=== PATIENT | male | born 1990 | race Caucasian/White ===

== ENCOUNTER 2018-04-26 07:39 | Emergency (ER) | payer OTHER ==
[~2018-04-26] VITALS: Ht 188 cm; Wt 95.4 kg
[~2018-04-26 07:39] MED LIST: LORA-446 PO; VALP250C PO
[2018-04-26 07:44] VITALS: BP 114/73
[2018-04-26] MEDS ORDERED: LIDOCAINE-MPF 1%, 5ML ONE (07:51)
[2018-04-26] MEDS ORDERED: LIDOCAINE 1%, 10ML INFIL ONE (08:00)
--- NOTE | 2018-04-26 08:10 | NUR ---
C/O LACERATION TO RIGHT HAND AT 2ND METACARPALPHALANGEAL JOINT. MO ACTIVE BLEEDING. ABOUT 1.5 CM. PT STATES HE HAD A RECENT TETANUS INJECTION.
--- NOTE | 2018-04-26 08:20 | NUR ---
IRRIGATED WOUND WITH STERILE NS. PT TOLERATED THIS WELL. "I DON'T FEEL A THING". READY FOR SUTURES. PA ADVISED.
--- NOTE | 2018-04-26 09:02 | NUR ---
WOUND COVERED WITH STERILE BANDAGE, FINGER SPLINT PLACED. PT VRBALIZED UNDERSTANDING OF SPLINT AND WOUND CARE. PT STATES HE WILL RETURN TO A CARE PROVIDER IN 10 DAYS TO HAVE SUTURES REMOVED.
== END 2018-04-26 09:04 | disposition home or self-care (01) ==
LOC: ED 08:15
DX: S61.411A Laceration without foreign body of right hand, initial encounter (principal); X58.XXXA Exposure to other specified factors, initial encounter; Y93.89 Activity, other specified; Y92.009 Unspecified place in unspecified non-institutional (private) residence as the place of occurrence of the external cause; Y99.8 Other external cause status
CPT/HCPCS: 12041; 99284

== ENCOUNTER 2018-06-27 16:23 | Observation (INO) | payer MEDICAID, OTHER ==
[~2018-06-27] VITALS: Ht 188 cm; Wt 92.7 kg
--- NOTE | 2018-06-27 16:34 | NUR ---
Pt ambulates to restroom with steady gait and balance.
--- NOTE | 2018-06-27 16:52 | NUR ---
Pt restign on gurney in [facility] ED MD at bedside. 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 Pt states he hasn't been on his meds for at least a month and is unable to identify what medications he is suppose to be on. Pt AOX4, cooperartive, and anxious. Pt belongings placed in personal belonging bags at RN station. Pt provided urine and urine sent to lab. Sitter near doorway in direct line of sight for observation. KYLEIGH. Pt resting on gurney watching TV. No needs expressed.
[2018-06-27 17:12] LABS: BASOPHILS # (AUTO) 0.05 x10^3/uL (0-0.1); BASOPHILS % (AUTO) 1 % (0-1); EOSINOPHILS # (AUTO) 0.08 x10^3/uL (0-0.4); EOSINOPHILS % (AUTO) 1 % (1-7); LYMPHOCYTES # (AUTO) 1.86 x10^3/uL (1-3.4); LYMPHOCYTES % (AUTO) 20 % (22-44); MD NO; MEAN CORPUSCULAR HEMOGLOBIN 29.7 pg (27.5-34.5); MEAN CORPUSCULAR HGB CONC 33.7 g/dL (33.2-36.2); MEAN CORPUSCULAR VOLUME 88.2 fL (81-97); MEAN PLATELET VOLUME 8.8 fL (7.4-10.4); MONOCYTES # (AUTO) 0.83 x10^3/uL (0.2-0.8); MONOCYTES % (AUTO) 9 % (2-9); NEUTROPHILS # (AUTO) 6.63 x10^3/uL (1.8-6.8); NEUTROPHILS % (AUTO) 70 % (42-75); PLATELET COUNT 358 x10^3/uL (130-400); RED BLOOD COUNT 5.43 x10^6/uL (4.38-5.82); RED CELL DISTRIBUTION WIDTH 13.5 % (9.4-14.8)
[2018-06-27 17:18] LABS: ALBUMIN 4.2 g/dL (3.4-5.0); ANION GAP 5 mmol/L (5-15); CHLORIDE 108 mmol/L (98-107); SALICYLATE LEVEL 1.7 mg/dL (2.8-20.0)
[2018-06-27 17:23] LABS: AMPHETAMINE SCREEN, URINE Negative (Negative); BARBITURATE SCREEN, URINE Negative (Negative); BENZODIAZEPINE SCREEN, URINE Negative (Negative); CANNABINOID SCREEN, URINE Positive (Negative); COCAINE SCREEN, URINE Negative (Negative); METHADONE SCREEN, URINE Negative (Negative); OPIATE SCREEN, URINE Negative (Negative)
[2018-06-27 17:24] LABS: ALANINE AMINOTRANSFERASE 32 U/L (12-78); ALKALINE PHOSPHATASE 85 U/L (45-117); BILIRUBIN,TOTAL 0.5 mg/dL (0.2-1.0); TOTAL PROTEIN 8.3 g/dL (6.4-8.2)
[2018-06-27 17:26] LABS: ACETAMINOPHEN < 2 mcg/mL (10-30)
--- NOTE | 2018-06-27 17:28 | NUR ---
THROUGHPUT RN: Telepsych consult initiated at this time
--- NOTE | 2018-06-27 18:06 | NUR ---
Telepsych bot set up at bedside.
--- NOTE | 2018-06-27 18:10 | NUR ---
Provided report to SOC doctor. SOC doctor calling pt on telepsych bot now.
--- NOTE | 2018-06-27 18:47 | NUR ---
Removing pt's cell phone, chewing tobacco, and personal mini spiral notebook and placing it with pt belongings in ED locker. Pt has two personal belonging bags with tags in ED lover for safe keeping.
--- NOTE | 2018-06-27 18:48 | NUR ---
Ordered pt dinner tray. Pt appreciative.
--- NOTE | 2018-06-27 19:03 | NUR ---
Provided bedside report to JONI Sepulveda. All questiosn answered.
--- NOTE | 2018-06-27 19:03 | NUR ---
ASSUMED CARE OF PATIENT. BEDSIDE REPORT GIVEN FROM JONI LEMUS
--- NOTE | 2018-06-27 19:16 | NUR ---
THROUGHPUT: PACKET FAXED TO [facility]
[2018-06-27] MEDS ORDERED: ACETAMINOPHEN 325 MG TABLET PO PRN (19:30)
[2018-06-27] MEDS ORDERED: LORazepam 1MG TABLET PO PRN (19:30)
--- NOTE | 2018-06-27 19:40 | NUR ---
pt given a sandwich and chips report called into [facility] pt calm and ready for transport
[2018-06-27 20:01] VITALS: BP 136/80
[2018-06-28 07:20] VITALS: BP 119/72
[2018-06-28 19:23] VITALS: BP 120/75
[2018-06-28] MEDS: QUETIAPINE 25MG TABLET PO SCH (20:42)
[2018-06-28] MEDS: PAROXETINE 10 MG TABLET PO SCH (21:00)
[2018-06-29 07:25] VITALS: BP 103/65
[2018-06-29] MEDS: PAROXETINE 10 MG TABLET PO SCH (09:03)
[2018-06-29 20:00] VITALS: BP 124/84
[2018-06-29] MEDS: QUETIAPINE 25MG TABLET PO SCH (20:38)
[2018-06-30 08:00] VITALS: BP 112/80
[2018-06-30] MEDS: PAROXETINE 10 MG TABLET PO SCH (09:00)
[2018-06-30 19:21] VITALS: BP 144/74
[2018-06-30] MEDS: QUETIAPINE 25MG TABLET PO SCH (20:38)
[2018-07-01] MEDS ORDERED: PARO10TA3 PO (07:29)
[2018-07-01] MEDS: PAROXETINE 10 MG TABLET PO SCH (07:58)
[2018-07-01 08:30] VITALS: BP 127/90
== END 2018-07-01 12:00 | disposition home or self-care (01) ==
LOC: ED 17:13 → EDIP 18:46 → 2N 19:57
PROVIDERS: ADMIT Family Medicine; ATTEND Family Medicine
DX: R45.851 Suicidal ideations (principal); F33.2 Major depressive disorder, recurrent severe without psychotic features; F12.20 Cannabis dependence, uncomplicated; F14.90 Cocaine use, unspecified, uncomplicated; F41.9 Anxiety disorder, unspecified; Z91.19 Patient's noncompliance with other medical treatment and regimen
CPT/HCPCS: 36415; 80053; 80307; 80329; 85025; 99284; G0378; G0480

== ENCOUNTER 2018-08-12 09:14 | Emergency (ER) | payer MEDICAID, OTHER ==
[~2018-08-12] VITALS: Ht 188 cm; Wt 93.0 kg
[~2018-08-12 09:14] MED LIST changes: +PARO10TA3 PO
--- NOTE | 2018-08-12 09:48 | NUR ---
PT. IS A & O X 4 WITH C/O INTERMITTENT CHEST PAIN FOR A WEEK. 12 LEAD EKG WAS DONE. PT. HAS THE CP MONITOR IN PLACE. PT.'S LUNGS ARE CTA. MM ARE PINK AND MOIST WITH PULSES +2 THROUGHOUT. PT.'S ABD. IS SOFT AND FLAT WITH BS + X 4 QUADS. PT. IS WAS TAKEN TO XRAY.
[2018-08-12 10:02] LABS: BASOPHILS # (AUTO) 0.04 x10^3/uL (0-0.1); BASOPHILS % (AUTO) 1 % (0-1); EOSINOPHILS # (AUTO) 0.18 x10^3/uL (0-0.4); EOSINOPHILS % (AUTO) 2 % (1-7); LYMPHOCYTES # (AUTO) 1.56 x10^3/uL (1-3.4); LYMPHOCYTES % (AUTO) 20 % (22-44); MD NO; MEAN CORPUSCULAR HEMOGLOBIN 29.8 pg (27.5-34.5); MEAN CORPUSCULAR HGB CONC 33.9 g/dL (33.2-36.2); MEAN CORPUSCULAR VOLUME 87.7 fL (81-97); MEAN PLATELET VOLUME 8.4 fL (7.4-10.4); MONOCYTES # (AUTO) 0.69 x10^3/uL (0.2-0.8); MONOCYTES % (AUTO) 9 % (2-9); NEUTROPHILS # (AUTO) 5.39 x10^3/uL (1.8-6.8); NEUTROPHILS % (AUTO) 69 % (42-75); PLATELET COUNT 330 x10^3/uL (130-400); RED BLOOD COUNT 5.13 x10^6/uL (4.38-5.82); RED CELL DISTRIBUTION WIDTH 13.4 % (9.4-14.8)
[2018-08-12 10:12] LABS: ALBUMIN 3.9 g/dL (3.4-5.0); ANION GAP 7 mmol/L (5-15); CHLORIDE 106 mmol/L (98-107); CREATININE 0.93 mg/dL (0.7-1.3)
[2018-08-12 10:16] LABS: TROPONIN I < 0.015 ng/mL (0.000-0.045)
--- NOTE | 2018-08-12 11:07 | NUR ---
PT. WAS GIVEN DISCHARGE INSTRUCTIONS WITH UNDERSTANDING VERBALIZED ALONG WITH WILLINGNESS TO COMPLY. PT. WAS AMBULATORY TO THE DISCHARGE DESK. VSS.
[2018-08-12 11:08] VITALS: BP 115/77
== END 2018-08-12 11:10 | disposition home or self-care (01) ==
LOC: ED 10:22
DX: R07.89 Other chest pain (principal); F32.9 Major depressive disorder, single episode, unspecified
CPT/HCPCS: 36415; 71046; 80048; 82040; 84484; 85025; 93005; 99284

== ENCOUNTER 2018-09-13 15:10 | Inpatient (IN) | payer MEDICAID ==
[~2018-09-13] VITALS: Ht 188 cm; Wt 88.2 kg
--- NOTE | 2018-09-13 15:43 | NUR ---
PT BIB [facility] FOR SEROQUEL OVERDOSE. PT STATES HE TOOK 30 ( O.25 MG TABLETS). PT VERY DROWSY. PT PLACED IN ROOM. PT A&OX4. PT PLACED ON BP, CARDIAC AND CONT. PULSE OXIMETER. ASSESSMENT COMPLETED. 2 SIDE RAILS UP. SITTER AT BEDSIDE. BELONGINGS LOCKED IN CABINET. PT COOPERATIVE AT THIS TIME.
--- NOTE | 2018-09-13 15:45 | NUR ---
EKG DONE AND PRESENTED TO
[2018-09-13 15:46] LABS: BASOPHILS # (AUTO) 0.04 x10^3/uL (0-0.1); BASOPHILS % (AUTO) 0 % (0-1); EOSINOPHILS # (AUTO) 0.04 x10^3/uL (0-0.4); EOSINOPHILS % (AUTO) 1 % (1-7); LYMPHOCYTES # (AUTO) 1.27 x10^3/uL (1-3.4); LYMPHOCYTES % (AUTO) 15 % (22-44); MD NO; MEAN CORPUSCULAR VOLUME 90.8 fL (81-97); MEAN PLATELET VOLUME 8.2 fL (7.4-10.4); MONOCYTES # (AUTO) 0.65 x10^3/uL (0.2-0.8); MONOCYTES % (AUTO) 8 % (2-9); NEUTROPHILS % (AUTO) 77 % (42-75); PLATELET COUNT 322 x10^3/uL (130-400); RED BLOOD COUNT 4.96 x10^6/uL (4.38-5.82); RED CELL DISTRIBUTION WIDTH 13.7 % (9.4-14.8)
[2018-09-13 15:55] LABS: ALBUMIN 3.7 g/dL (3.4-5.0); ANION GAP 7 mmol/L (5-15); CALCIUM 8.4 mg/dL (8.5-10.1); CHLORIDE 109 mmol/L (98-107)
[2018-09-13 15:59] LABS: ALANINE AMINOTRANSFERASE 25 U/L (12-78); ALKALINE PHOSPHATASE 66 U/L (45-117); BILIRUBIN,TOTAL 0.3 mg/dL (0.2-1.0)
[2018-09-13 16:00] LABS: ACETAMINOPHEN < 2 mcg/mL (10-30); SALICYLATE LEVEL < 1.7 mg/dL (2.8-20.0)
--- NOTE | 2018-09-13 16:09 | NUR ---
PT AWAKENS WITH VERBAL STIMULI. PT DROWSY.
--- NOTE | 2018-09-13 16:28 | NUR ---
PT SLEEPING IN BED. VITALS STABLE AT THIS TIME.
--- NOTE | 2018-09-13 17:05 | NUR ---
pt sleeping at this time. awakens with verbal stimuli. pt a&ox4
[2018-09-13] MEDS ORDERED: ONDANSETRON ODT 4 MG PO PRN (18:00)
[2018-09-13] MEDS ORDERED: LABETALOL 5 MG/ML SYRINGE IVPush PRN (18:00)
[2018-09-13] MEDS ORDERED: ACETAMINOPHEN 325 MG TABLET PO PRN (18:00)
--- NOTE | 2018-09-13 18:17 | NUR ---
PATIENT FATHER [phone] JOHANNA MARX
--- NOTE | 2018-09-13 18:26 | NUR ---
CALLED REPORT TO [facility].
[2018-09-13 18:34] LABS: AMPHETAMINE SCREEN, URINE Negative (Negative); BARBITURATE SCREEN, URINE Negative (Negative); BENZODIAZEPINE SCREEN, URINE Negative (Negative); CANNABINOID SCREEN, URINE Positive (Negative); COCAINE SCREEN, URINE Negative (Negative); METHADONE SCREEN, URINE Negative (Negative); OPIATE SCREEN, URINE Negative (Negative)
[2018-09-13] MEDS: SODIUM CHLORIDE 0.9% 1,000 ML IV SCH (21:00)
[2018-09-13 21:01] VITALS: BP 108/62
[2018-09-14 01:19] VITALS: BP 101/56
[2018-09-14 04:53] LABS: BASOPHILS # (AUTO) 0.04 x10^3/uL (0-0.1); BASOPHILS % (AUTO) 0 % (0-1); EOSINOPHILS # (AUTO) 0.22 x10^3/uL (0-0.4); EOSINOPHILS % (AUTO) 3 % (1-7); LYMPHOCYTES # (AUTO) 1.95 x10^3/uL (1-3.4); LYMPHOCYTES % (AUTO) 22 % (22-44); MD NO; MEAN CORPUSCULAR HEMOGLOBIN 30.3 pg (27.5-34.5); MEAN CORPUSCULAR HGB CONC 33.4 g/dL (33.2-36.2); MEAN CORPUSCULAR VOLUME 90.6 fL (81-97); MEAN PLATELET VOLUME 8.5 fL (7.4-10.4); MONOCYTES % (AUTO) 10 % (2-9); NEUTROPHILS # (AUTO) 5.82 x10^3/uL (1.8-6.8); NEUTROPHILS % (AUTO) 65 % (42-75); PLATELET COUNT 323 x10^3/uL (130-400); RED BLOOD COUNT 5.02 x10^6/uL (4.38-5.82); RED CELL DISTRIBUTION WIDTH 13.8 % (9.4-14.8)
[2018-09-14 05:02] LABS: ALBUMIN 3.5 g/dL (3.4-5.0); ANION GAP 5 mmol/L (5-15); CALCIUM 8.8 mg/dL (8.5-10.1); CHLORIDE 112 mmol/L (98-107)
[2018-09-14 05:15] LABS: ALANINE AMINOTRANSFERASE 25 U/L (12-78); ALKALINE PHOSPHATASE 69 U/L (45-117); BILIRUBIN,TOTAL 0.5 mg/dL (0.2-1.0); CREATININE 1.09 mg/dL (0.7-1.3); THYROID STIMULATING HORMONE 0.602 mIU/L (0.358-3.740); TOTAL PROTEIN 6.9 g/dL (6.4-8.2)
[2018-09-14 06:45] VITALS: BP 105/66
[2018-09-14] MEDS: SODIUM CHLORIDE 0.9% 1,000 ML IV SCH ×2 (09:34→19:35)
[2018-09-14 12:30] VITALS: BP 119/75
[2018-09-14] MEDS ORDERED: QUET50TA5 PO (15:36)
[2018-09-14] MEDS ORDERED: PARO10TA3 PO (15:36)
[2018-09-14] MEDS ORDERED: OXCA150T18 PO (15:36)
[2018-09-14 20:06] VITALS: BP 124/78
[2018-09-15 01:10] VITALS: BP 117/72
[2018-09-15 06:13] VITALS: BP 118/76
[2018-09-15] MEDS: SODIUM CHLORIDE 0.9% 1,000 ML IV SCH ×2 (06:15→16:47)
[2018-09-15 12:05] LABS: TROPONIN I < 0.015 ng/mL (0.000-0.045)
[2018-09-15 14:26] VITALS: BP 120/72
[2018-09-15 16:40] VITALS: BP 145/87
[2018-09-15 18:01] LABS: TROPONIN I < 0.015 ng/mL (0.000-0.045)
[2018-09-15 21:27] VITALS: BP 124/79
[2018-09-16 02:10] VITALS: BP 104/73
[2018-09-16] MEDS: SODIUM CHLORIDE 0.9% 1,000 ML IV SCH ×2 (07:20→17:26)
[2018-09-16 07:38] VITALS: BP 124/76
[2018-09-16 13:53] VITALS: BP 153/81
[2018-09-16 18:15] VITALS: BP 160/84
[2018-09-16 19:20] VITALS: BP 140/90
== END 2018-09-16 21:02 | DRG 918 ==
LOC: ED 15:35 → EDIP 17:34 → 4WST 19:11 → 2N 09-16 16:59
PROVIDERS: ADMIT Internal Medicine; ATTEND Internal Medicine
DX: T43.592A Poisoning by other antipsychotics and neuroleptics, intentional self-harm, initial encounter (principal); F33.9 Major depressive disorder, recurrent, unspecified; Z72.0 Tobacco use; Z88.6 Allergy status to analgesic agent
CPT/HCPCS: 36415; 80053; 80307; 84443; 84484; 85025; 93005; 93306; 99285; G0378; J7030

== ENCOUNTER 2019-10-09 05:52 | Emergency (ER) | payer MEDICAID ==
[~2019-10-09] VITALS: Ht 188 cm; Wt 81.0 kg
[~2019-10-09 05:52] MED LIST changes: +OXCA150T18 PO; +QUET50TA5 PO
[2019-10-09 05:59] VITALS: BP 128/75
--- NOTE | 2019-10-09 06:08 | NUR ---
Pt ambulated to room 18 c/o lesion to the left side of mouth. Pt states that it started as a pimple but "keeps picking at it with meth on fingers."
== END 2019-10-09 06:43 | disposition home or self-care (01) ==
LOC: ED 06:09
DX: L01.01 Non-bullous impetigo (principal)
CPT/HCPCS: 99283

== ENCOUNTER 2019-10-14 19:26 | Emergency (ER) | payer MEDICAID ==
[~2019-10-14] VITALS: Ht 188 cm; Wt 82.7 kg
[2019-10-14 19:30] VITALS: BP 111/71
--- NOTE | 2019-10-14 19:44 | NUR ---
Pt seated in chair at nurses station for pt safety as no [facility] rooms available, Dr Strickland talking with pt at this time.
--- NOTE | 2019-10-14 20:05 | NUR ---
PT IN VIEW OF NURSING STATION, LAB DRAW IN PROGRESS, NO COMPLAINTS AT THIS TIME
[2019-10-14 20:17] LABS: BASOPHILS # (AUTO) 0.03 x10^3/uL (0-0.1); BASOPHILS % (AUTO) 0 % (0-1); EOSINOPHILS # (AUTO) 0.06 x10^3/uL (0-0.4); EOSINOPHILS % (AUTO) 1 % (1-7); LYMPHOCYTES # (AUTO) 1.86 x10^3/uL (1-3.4); LYMPHOCYTES % (AUTO) 17 % (22-44); MD NO; MEAN CORPUSCULAR HEMOGLOBIN 29.3 pg (27.5-34.5); MEAN CORPUSCULAR HGB CONC 33.2 g/dL (33.2-36.2); MEAN CORPUSCULAR VOLUME 88.3 fL (81-97); MEAN PLATELET VOLUME 8.4 fL (7.4-10.4); MONOCYTES # (AUTO) 0.61 x10^3/uL (0.2-0.8); MONOCYTES % (AUTO) 6 % (2-9); NEUTROPHILS % (AUTO) 77 % (42-75); PLATELET COUNT 387 x10^3/uL (130-400); RED BLOOD COUNT 5.15 x10^6/uL (4.38-5.82); RED CELL DISTRIBUTION WIDTH 14.2 % (9.4-14.8)
[2019-10-14 20:26] LABS: ANION GAP 7 mmol/L (5-15); CALCIUM 9.1 mg/dL (8.5-10.1); CHLORIDE 107 mmol/L (98-107); CREATININE 1.22 mg/dL (0.7-1.3)
[2019-10-14 20:32] LABS: SALICYLATE LEVEL < 1.7 mg/dL (2.8-20.0)
--- NOTE | 2019-10-14 20:52 | NUR ---
PT STATES TO THIS RN THAT HE IS NOT ACTUALLY SUICIDAL AND WAS TOLD BY HIS FRIENDS TO SAY HE WAS SI SO THAT HE WOULD HAVE A PLACE TO STAY. PT STATED THIS TO THE ERP WELL, GIVEN A SANDWICH AND BUS PASS. STATES HE IS COMFORTABLE WITH DISCHARGE AND HAS A FRIEND'S HOUSE HE CAN GO TO.
== END 2019-10-14 22:02 | disposition home or self-care (01) ==
LOC: ED 21:26
DX: R45.851 Suicidal ideations (principal); F32.9 Major depressive disorder, single episode, unspecified; Z87.891 Personal history of nicotine dependence; Z91.14 Patient's other noncompliance with medication regimen
CPT/HCPCS: 36415; 80048; 80307; 82040; 85025; 99283

== ENCOUNTER 2019-10-20 05:42 | Emergency (ER) | payer MEDICAID ==
[~2019-10-20] VITALS: Ht 188 cm; Wt 84.7 kg
[2019-10-20 05:45] VITALS: BP 114/71
[2019-10-20] MEDS ORDERED: CEFTRIAXONE 250 MG IM ONE (06:00)
[2019-10-20] MEDS ORDERED: AZITHROMYCIN 500 MG TABLET PO ONE (06:00)
[2019-10-20] MEDS ORDERED: AZITHROMYCIN 500 MG TABLET ONE (06:09)
[2019-10-20] MEDS ORDERED: CEFTRIAXONE 250 MG ONE (06:09)
== END 2019-10-20 06:35 | disposition home or self-care (01) ==
LOC: ED 06:30
DX: N34.2 Other urethritis (principal); R36.9 Urethral discharge, unspecified
CPT/HCPCS: 87491; 87591; 96372; 99283; J0696

== ENCOUNTER 2020-03-07 12:51 | Emergency (ER) | payer MEDICAID ==
[~2020-03-07] VITALS: Ht 188 cm; Wt 86.8 kg
[2020-03-07 12:59] VITALS: BP 120/83
[2020-03-07 13:30] LABS: MEAN CORPUSCULAR HEMOGLOBIN 29.1 pg (27.5-34.5); MEAN CORPUSCULAR HGB CONC 33.7 g/dL (33.2-36.2); MEAN PLATELET VOLUME 8.2 fL (7.4-10.4); PLATELET COUNT 336 x10^3/uL (130-400); RED BLOOD COUNT 4.91 x10^6/uL (4.38-5.82); RED CELL DISTRIBUTION WIDTH 13.2 % (9.4-14.8)
[2020-03-07 13:50] LABS: MD YES
[2020-03-07] MEDS ORDERED: LIDOCAINE-MPF 1%, 5ML ONE (13:50)
[2020-03-07 13:52] LABS: BAND#(MANUAL) 0.18 x10^3/uL; BANDS%(MANUAL) 3 % (0-7); LYMPH#(MANUAL) 1.65 x10^3/uL (1-3.4); LYMPHS% (MANUAL) 28 % (22-44); MONOS#(MANUAL) 0.94 x10^3/uL (0.3-2.7); MONOS% (MANUAL) 16 % (2-9); SEG#(MANUAL) 3.13 x10^3/uL (1.8-6.8); SEGS% (MANUAL) 53 % (42-75)
[2020-03-07 13:53] LABS: <PLATELET ESTIMATE> ADEQUATE; <PLT MORPHOLOGY> NORMAL PLT MORPH; <RBC MORPHOLOGY> NORMAL; PMNS WITH VACUOLES 1+
--- NOTE | 2020-03-07 13:58 | NUR ---
THIS IS A 29 YO M W/ C/O INGROWN HAIR ON NECK. PT TACHYCARDIC, OTHER VS WDL. PER PT, LAST USED METH LAST NIGHT. RESP EVEN AND UNLABORED, NADN.
--- NOTE | 2020-03-07 14:20 | NUR ---
Patient given discharge instructions and they have confirmed that they understand the instructions. Patient ambulatory with steady gait.
[2020-03-07 16:45] LABS: ANION GAP 7 mmol/L (5-15); CHLORIDE 102 mmol/L (98-107)
[2020-03-07 16:46] LABS: ALBUMIN 3.7 g/dL (3.4-5.0); CREATININE 1.25 mg/dL (0.7-1.3)
== END 2020-03-07 14:42 | disposition home or self-care (01) ==
LOC: ED 14:05
DX: L73.9 Follicular disorder, unspecified (principal); R51.9 Headache, unspecified
CPT/HCPCS: 36415; 80048; 82040; 85025; 99283